=== PATIENT | male | born 2000 | race Two or more races ===

== ENCOUNTER 2023-11-25 00:35 | Emergency (ER) | payer OTHER ==
[~2023-11-25] VITALS: Ht 167.6 cm; Wt 65.0 kg
[2023-11-25 01:08] VITALS: BP 110/72; PULSE 72; RESP 20; TEMP 98
== END 2023-11-25 01:41 | disposition home or self-care (01) ==
LOC: EMS 00:35
DX: F41.9 Anxiety disorder, unspecified (principal); T40.715A Adverse effect of cannabis, initial encounter; R07.89 Other chest pain; J45.909 Unspecified asthma, uncomplicated; F12.90 Cannabis use, unspecified, uncomplicated; Y92.89 Other specified places as the place of occurrence of the external cause
CPT/HCPCS: 99283; Z7502